=== PATIENT | male | born 1965 | race Caucasian/White ===

== ENCOUNTER 2020-12-11 07:17 | Emergency (ER) | payer BC ==
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
[2020-12-11] MEDS ORDERED: Lidocaine 1% 10 ML MDV INJECT ONE (08:48)
--- NOTE | 2020-12-11 12:40 | CR ---
Left knee: 4 views of the left knee were obtained. Comparison: No prior knee exam. Diffuse soft tissue swelling is noted anteriorly. No joint effusion is seen. Medial and lateral joint compartments are maintained in height. No discrete fracture or other bony abnormality is appreciated. Impression: 1. Diffuse soft tissue swelling. 2. No acute osseous abnormality is appreciated. Diagnostic code #2
== END 2020-12-11 09:31 | disposition home or self-care (01) ==
LOC: JD.ED 07:17
DX: S80.02XA Contusion of left knee, initial encounter (principal); W19.XXXA Unspecified fall, initial encounter
CPT/HCPCS: 36415; 73564-26-LT; 73564-LT; 85610; 99283; 99283-25